=== PATIENT | female | born 1990 | race Two or more races ===

== ENCOUNTER → 2024-12-11 | Outpatient (CLI) | payer BC, SELFPAY ==
[2024-12-11 15:50] LABS: Collection Type, Urine Clean Catch
[2024-12-11 16:49] LABS: Bilirubin,Urine Negative (Negative); Blood,Urine Negative (Negative); Clarity,Urine Clear (Clear/Hazy); Color,Urine Lt-Yellow (Lt Yel-Yel); Glucose, Urine Negative (Negative); Ketones,Urine Negative (Negative); Leukocyte Esterase,Urine Negative (Negative); Nitrite,Urine Negative (Negative); PH,Urine 7.5 (5.0-7.0); Protein,Urine Negative (Neg - Trace); RBC,Urine 1 /hpf (0-3); Specific Gravity,Urine 1.011 (1.001-1.035); Squamous Epithelial Cell,Urine 8 /hpf (0-5); Urobilinogen,Urine Negative mg/dL (0.0-1.0); WBC,Urine 1 /hpf (0-5)
[2024-12-11 16:54] LABS: Amphetamine/Methamp Scrn,U Negative (Negative); Barbiturate Screen,Urine Negative (Negative); Benzodiazepines Screen,Urine Negative (Negative); Benzoylecgonine Screen, Ur Negative (Negative); Fentanyl Screen,Urine Negative (Negative); Opiate Screen,Urine Negative (Negative); THC Screen,Urine Negative (Negative)
[2024-12-12 08:18] LABS: BVAG Candida Negative (Negative); Bacterial Vaginosis Markers Negative (Negative); Candida glabrata Negative (Negative); Candida krusei PCR Negative (Negative); Trichomonas Negative (Negative)
== END | disposition home or self-care (01) ==
LOC: SLDO 15:37
PROVIDERS: Referring Provider Specialist; Visit Provider Specialist
DX: O98.311 Other infections with a predominantly sexual mode of transmission complicating pregnancy, first trimester (principal); A59.01 Trichomonal vulvovaginitis; O23.591 Infection of other part of genital tract in pregnancy, first trimester; B37.89 Other sites of candidiasis; N76.0 Acute vaginitis; O98.811 Other maternal infectious and parasitic diseases complicating pregnancy, first trimester; Z3A.00 Weeks of gestation of pregnancy not specified
CPT/HCPCS: 80307; 81001; 81514; 87086

== ENCOUNTER → 2024-12-11 | Outpatient (CLI) | payer BC, SELFPAY ==
[2024-12-11 10:27] LABS: Misc Send Out* See Sep Rpt
[2024-12-11 10:49] LABS: Quantiferon-TB* See Sep Rpt
[2024-12-11 10:59] LABS: Basophils % (Auto) 0 % (0-2.5); Eosinophils # (Auto) 0.1 Thou/mm3 (0.0-0.5); Eosinophils % (Auto) 1 % (0-10); Hematocrit 36.3 % (36.0-46.0); Hemoglobin 12.6 g/dL (12.0-16.0); Immature Granulocytes % (Auto) 0 % (0-0); Immature Granulocytes Auto 0.04 Thou/mm3 (0.00-0.00); Lymphocytes # (Auto) 1.7 Thou/mm3 (1.0-4.8); Lymphocytes % (Auto) 17 % (10-50); Mean Corpuscular HGB Conc 34.7 g/dl (31.0-37.0); Mean Corpuscular Hemoglobin 29.2 pg (25.0-35.0); Mean Corpuscular Volume 84 fL (80-100); Monocytes # (Auto) 0.4 Thou/mm3 (0.0-0.8); Monocytes % (Auto) 4 % (0-12); Neutrophils # (Auto) 7.4 Thou/mm3 (1.8-7.7); Neutrophils % (Auto) 77 % (37-80); Nucleated Red Blood Cell % 0 /100 WBC (0); Platelet Count 290 Thou/mm3 (140-440); RDW Standard Deviation 39.1 fL (36.4-46.3); Red Blood Count 4.32 Miln/mm3 (4.00-5.20); White Blood Count 9.6 Thou/mm3 (3.6-11.0)
[2024-12-11 11:34] LABS: Creatinine (Component) 0.4 mg/dL (0.6-1.3); Glucose 81 mg/dL (74-106); eGFR > 60 See Note
[2024-12-11 14:49] LABS: Glucose Estimated Average 91 mg/dL (80-131); Hemoglobin A1C 4.8 % Hgb (4.8-6.0)
[2024-12-11 15:45] LABS: Hepatitis B Surface Antigen Non Reactive (Non React); Rubella, IgG Antibody Reactive (Immune)
[2024-12-11 16:59] LABS: HIV (1&2) Antibody Rapid Non-Reactive
[2024-12-14 13:48] LABS: HCV RNA, PCR <15 NOT DETECTED IU/mL
[2024-12-15 07:18] LABS: HCV RNA, PCR Log IU <1.18 NOT DETECTED Log IU/mL; HIV Ag/Ab, 4th Gen NON-REACTIVE
== END | disposition home or self-care (01) ==
LOC: COPL 09:54
PROVIDERS: PCP Internal Medicine; Referring Provider Specialist; Visit Provider Specialist
DX: Z34.81 Encounter for supervision of other normal pregnancy, first trimester (principal)
CPT/HCPCS: 36415; 81220; 82565; 82947; 83036; 84702; 85025; 86480; 86703; 86762; 86850; 86900; 86901; 87340; 87389; 87522

== ENCOUNTER → 2025-03-06 | Outpatient (CLI) | payer BC, SELFPAY ==
[2025-03-06 14:36] LABS: Misc Send Out* See Sep Rpt
[2025-03-06 15:07] LABS: Glucose,1 Hour PP 50gm Dose 95 mg/dL (80-140)
== END | disposition home or self-care (01) ==
LOC: SLDO 14:15
PROVIDERS: Referring Provider Specialist; Visit Provider Specialist
DX: Z34.82 Encounter for supervision of other normal pregnancy, second trimester (principal); Z67.91 Unspecified blood type, Rh negative
CPT/HCPCS: 36415; 82950

== ENCOUNTER → 2025-03-24 | Outpatient (CLI) | payer BC, SELFPAY ==
[2025-03-24 15:01] LABS: Basophils # (Auto) 0.1 Thou/mm3 (0.0-0.2); Basophils % (Auto) 1 % (0-2.5); Eosinophils # (Auto) 0.1 Thou/mm3 (0.0-0.5); Eosinophils % (Auto) 1 % (0-10); Hematocrit 35.9 % (36.0-46.0); Hemoglobin 12.5 g/dL (12.0-16.0); Immature Granulocytes % (Auto) 1 % (0-0); Immature Granulocytes Auto 0.14 Thou/mm3 (0.00-0.00); Lymphocytes # (Auto) 1.8 Thou/mm3 (1.0-4.8); Lymphocytes % (Auto) 18 % (10-50); Mean Corpuscular HGB Conc 34.8 g/dl (31.0-37.0); Mean Corpuscular Hemoglobin 29.4 pg (25.0-35.0); Mean Corpuscular Volume 85 fL (80-100); Monocytes # (Auto) 0.5 Thou/mm3 (0.0-0.8); Monocytes % (Auto) 5 % (0-12); Neutrophils # (Auto) 7.3 Thou/mm3 (1.8-7.7); Neutrophils % (Auto) 74 % (37-80); Nucleated Red Blood Cell % 0 /100 WBC (0); Platelet Count 269 Thou/mm3 (140-440); RDW Standard Deviation 40.2 fL (36.4-46.3); Red Blood Count 4.25 Miln/mm3 (4.00-5.20); White Blood Count 9.9 Thou/mm3 (3.6-11.0)
[2025-03-24 16:26] LABS: Syphilis Nonreactive (Nonreactive)
== END | disposition home or self-care (01) ==
LOC: SLDO 14:24
PROVIDERS: Referring Provider Physician Assistant Medical; Visit Provider Physician Assistant Medical
DX: Z34.83 Encounter for supervision of other normal pregnancy, third trimester (principal)
CPT/HCPCS: 36415; 85025; 86780

== ENCOUNTER 2025-04-15 17:30 | Observation (INO) | payer BC, SELFPAY ==
[2025-04-15] VITALS (96 sets, daily range): BP systolic 102–136; BP diastolic 62–98; PULSE 77–169; RESP 16–99; TEMP 36.7–37.4; O2SAT 86–100; BMI 34.0
--- NOTE | 2025-04-15 17:47 | XR_ITS ---
Examination: Complete OB ultrasound greater than 14 weeks Date and time of exam: April 15, 2025 1831 hours INDICATIONS: Vaginal bleeding today Findings: Viable intrauterine single fetus with single amniotic sac presentation cephalic Cardiac motion 169 BPM Placenta anterior normal no obstruction grade tear Umbilical cord insertion 3 vessel seen Amniotic fluid index 14.5 cm spine maternal right Cervix 3.7 cm Ovaries obscured by bowel gas. Composite estimated gestational age based on BPD, head circumference, abdominal circumference, femur length is 34 weeks 0 days Estimated weight 2332 g. Survey of intracranial anatomy, spinal anatomy, abdominal anatomy, four-chamber heart performed with no abnormalities identified. Impression: Viable intrauterine gestation cephalic presentation Placenta anterior grade 2 no obstruction.
--- NOTE | 2025-04-15 17:51 | XR_ITS ---
Examination: AP chest single view TECHNIQUE: AP portable upright chest single view INDICATIONS: Sepsis protocol. FINDINGS: No significant cardiac enlargement No lobar pneumonia The film appears to be mislabeled right to left The osseous structures are intact IMPRESSION: No pneumonia identified
--- NOTE | 2025-04-15 17:51 | EKG_ITS ---
[facility] Test Date: 2025-04-15 Pat Name: RAVEN ROSAS Department: Room: 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
[2025-04-15] MEDS: RINGERS LACTATED 1000 ML 1,000 ML 999 ML IV (17:55)
--- NOTE | 2025-04-15 17:55 | PD.LDANTE ---
Documentation for date of: 04/15/25 OB Labor/Induct. HPI History of Present Illness : 2 Para: 1 Term pregnancies: 0 pregnancies: 0 Living children: 1 History of Abortions: Spontaneous and Elective: 0 History of Vaginal deliveries: 1 History of sections: No History of : No Date of last menstrual period: 08/22/24 DELFIN: 05/29/25 Gestational Age (weeks): 33 Gestational Age (days): 5 Gestational age based on last menstrual period: 33 History of present illness: 35 yo G2 P 1001 IUP 33w5d presents to [facility] complaining of sudden onset of vaginal bleeding after voiding. No vaginal bleeding seen by RN upon presentation to [facility] however tachycardia was noted in the 180's with variability and accelerations. Maternal heart rate was in the 160's. She has care at [facility]. She has chronic HTN but does not take any medications. Her labs were wnl. She denies any leaking or contractions. She reports normal movement. Denies fever, chest pain, shortness of breath or palpitations. Her most recent OB sonogram on 04/07/25 showed EFW 1863g, with growth at the 22nd%, SAMMY 14.9, cephalic, anterior placenta, no previa. OB Hx 07/2028 at 37w0d Male 5'14 PMHx: Gallstones, Rh negative, Chronic HTN. PSHx: Cholecystectomy Allergies: NKDA FHx: Denies Meds: PNV Review of Systems Review of Systems Narrative Review of Systems: Denies any headache, change in vision, RUQ pain or swelling in face or hands. Denies flank pain or back pain. Past Medical History Surgical History SURGICAL: Negative Section Meds Home Medications and Allergies Home Medications ?Medication ?Instructions ?Recorded ?Confirmed ?Type prenat.vits,miquel,oyl-xkdf-nbixj 1 tab PO QDAY 07/01/18 04/15/25 History ( Vitamin tablet) Allergies Allergy/AdvReac Type Severity Reaction Status Date / Time No Known Allergies Allergy Verified 04/15/25 17:38 OB Exam Physical Exam Vital signs: Pulse BP Pulse Ox 162 H 128/92 H 98 04/15/25 17:42 04/15/25 17:42 04/15/25 17:51 Routine HEENT Exam Comments: Oropharynx , sclera clear. Routine Respiratory Exam Comments: CTA B/L Routine Cardiovascular Exam Comments: Tachycardic but regular rhythm Routine Abdominal Exam Comments: gravid consistent with 33 weeks gestation, Nontender , soft Detailed Labor and Delivery Exam Comments: see RN notes Routine Extremities Exam Comments: Nontender or edema Routine Back/Spine/Pelvis Exam Comments: No CVAT Routine Skin Exam Comments: No rashes or lesions. Routine Neurological Exam Comments: No focal deficit Routine Psychiatric Exam Comments: A and O OB Results Labs 04/15/25 17:55 04/15/25 17:55 Impressions Impression: IUP 33w5d Third Trimester Vaginal Bleeding Maternal tachycardia 160's tachycardia 180's Chronic Hypertension Continuous monitoring IV LR at 999cc/hr x 1 liter than 125 cc/hr Complete OB sonogram rule out abruption Type and Cross 2 u pRBCs Sepsis work up.
[2025-04-15 18:21] LABS: Collection Type, Urine Clean Catch
[2025-04-15 18:29] LABS: Lactate (Lactic Acid) 3.0 mMol/L (0.4-2.0)
[2025-04-15 18:41] LABS: Bacteria,Urine 2+; Bilirubin,Urine Negative (Negative); Blood,Urine 3+ (Negative); Clarity,Urine Turbid (Clear/Hazy); Color,Urine Colorless (Lt Yel-Yel); Glucose, Urine Negative (Negative); Ketones,Urine Negative (Negative); Leukocyte Esterase,Urine Positive (Negative); Nitrite,Urine Negative (Negative); PH,Urine 6.5 (5.0-7.0); Protein,Urine Negative (Neg - Trace); RBC,Urine 38 /hpf (0-3); Specific Gravity,Urine 1.008 (1.001-1.035); Squamous Epithelial Cell,Urine 3 /hpf (0-5); Urobilinogen,Urine Negative mg/dL (0.0-1.0); WBC,Urine 11 /hpf (0-5)
[2025-04-15 18:46] LABS: Basophils # (Auto) 0.0 Thou/mm3 (0.0-0.2); Basophils % (Auto) 0 % (0-2.5); Eosinophils # (Auto) 0.1 Thou/mm3 (0.0-0.5); Eosinophils % (Auto) 1 % (0-10); Hematocrit 37.7 % (36.0-46.0); Hemoglobin 13.5 g/dL (12.0-16.0); Immature Granulocytes Auto 0.18 Thou/mm3 (0.00-0.00); Lymphocytes # (Auto) 3.0 Thou/mm3 (1.0-4.8); Lymphocytes % (Auto) 26 % (10-50); Mean Corpuscular HGB Conc 35.8 g/dl (31.0-37.0); Mean Corpuscular Hemoglobin 29.3 pg (25.0-35.0); Mean Corpuscular Volume 82 fL (80-100); Monocytes # (Auto) 0.8 Thou/mm3 (0.0-0.8); Monocytes % (Auto) 7 % (0-12); Neutrophils # (Auto) 7.5 Thou/mm3 (1.8-7.7); Neutrophils % (Auto) 65 % (37-80); Nucleated Red Blood Cell # 0.00 Thou/mm3 (0.00-0.00); Nucleated Red Blood Cell % 0 /100 WBC (0); Platelet Count 264 Thou/mm3 (140-440); RDW Standard Deviation 38.5 fL (36.4-46.3); Red Blood Count 4.61 Miln/mm3 (4.00-5.20); White Blood Count 11.7 Thou/mm3 (3.6-11.0)
[2025-04-15] MEDS: RINGERS LACTATED 1000 ML 1,000 ML 125 ML IV (18:47)
[2025-04-15 18:53] LABS: INR 0.9 (0.9-1.3); Partial Thromboplastin Time 27.1 Seconds (22.0-36.0); Prothrombin Time 10.3 Seconds (9.0-12.2)
[2025-04-15 18:58] LABS: Fibrinogen 664 mg/dL (175-375)
[2025-04-15 19:39] LABS: Alanine Aminotransferase 10 U/L (10-49); Albumin, Serum 3.8 gm/dL (3.5-5.0); Albumin/Globulin Ratio 1.2 (1.2-2.2); Alkaline Phosphatase 119 U/L (46-116); Anion Gap 14 (7-16); Aspartate Amino Transferase 19 U/L (0-34); BUN/Creatinine Ratio 8 Ratio (12-20); Bilirubin,Total 0.4 mg/dL (0.3-1.2); Blood Urea Nitrogen 5 mg/dL (9-23); Calcium 9.3 mg/dL (8.3-10.6); Calcium (Corrected) 9.5 mg/dL (8.5-10.1); Carbon Dioxide 18.8 mMol/L (20.0-31.0); Chloride 106 mMol/L (98-107); Creatinine (Component) 0.6 mg/dL (0.6-1.3); Estimated Creatinine Clearance 134.4 mL/min (>60); Globulin 3.2 gm/dL (2.3-3.5); Glucose 129 mg/dL (74-106); LDH (Lactate Dehydrogenase) 177 U/L (120-246); Osmolality,Calculated 276 (275-295); Potassium 3.6 mMol/L (3.4-5.1); Procalcitonin 0.05 ng/ml (0.0-0.49); Sodium 139 mMol/L (136-145); Total Protein 7.0 gm/dL (5.7-8.2); Uric Acid 3.7 mg/dL (3.1-7.8); eGFR > 60 See Note
[2025-04-15 19:42] LABS: Amphetamine/Methamp Scrn,U Negative (Negative); Barbiturate Screen,Urine Negative (Negative); Benzodiazepines Screen,Urine Negative (Negative); Benzoylecgonine Screen, Ur Negative (Negative); Creatinine,Random Urine 42 mg/dL (30-125); Fentanyl Screen,Urine Negative (Negative); Opiate Screen,Urine Negative (Negative); Protein Total, Random Urine 18 mg/dL (1-14); THC Screen,Urine Negative (Negative)
[2025-04-15 20:22] LABS: Syphilis Nonreactive (Nonreactive)
[2025-04-15] MEDS: cefTRIAXone/D5w 1gm IV premix 1 GM/50 ML BAG IV (20:49)
[2025-04-15 21:16] LABS: COVID-19 Antigen (In-House) Negative (Negative)
[2025-04-15 21:27] LABS: Reflex Lactate? Y
[2025-04-15 21:29] LABS: Influenza A Ag Negative; Influenza B Ag Negative
[2025-04-15 22:08] LABS: Lactic Acid, 3 HR 1.2 mMol/L (0.4-2.0)
[2025-04-16] VITALS (309 sets, daily range): BP systolic 97–128; BP diastolic 55–88; PULSE 78–125; RESP 14–18; TEMP 36.6–36.8; O2SAT 90–100
[2025-04-16] MEDS: RINGERS LACTATED 1000 ML 1,000 ML 999 ML IV (02:10)
[2025-04-16 06:40] LABS: Basophils # (Auto) 0.0 Thou/mm3 (0.0-0.2); Basophils % (Auto) 0 % (0-2.5); Eosinophils # (Auto) 0.1 Thou/mm3 (0.0-0.5); Eosinophils % (Auto) 1 % (0-10); Hematocrit 31.8 % (36.0-46.0); Hemoglobin 11.1 g/dL (12.0-16.0); Immature Granulocytes Auto 0.11 Thou/mm3 (0.00-0.00); Lymphocytes # (Auto) 2.4 Thou/mm3 (1.0-4.8); Lymphocytes % (Auto) 23 % (10-50); Mean Corpuscular HGB Conc 34.9 g/dl (31.0-37.0); Mean Corpuscular Hemoglobin 29.1 pg (25.0-35.0); Mean Corpuscular Volume 83 fL (80-100); Monocytes # (Auto) 0.7 Thou/mm3 (0.0-0.8); Monocytes % (Auto) 7 % (0-12); Neutrophils # (Auto) 7.2 Thou/mm3 (1.8-7.7); Neutrophils % (Auto) 68 % (37-80); Nucleated Red Blood Cell # 0.00 Thou/mm3 (0.00-0.00); Nucleated Red Blood Cell % 0 /100 WBC (0); Platelet Count 221 Thou/mm3 (140-440); RDW Standard Deviation 39.3 fL (36.4-46.3); Red Blood Count 3.82 Miln/mm3 (4.00-5.20); White Blood Count 10.5 Thou/mm3 (3.6-11.0)
--- NOTE | 2025-04-16 09:04 | ESPR_ITS ---
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 Will do ultrasound reassuring. No chest pain or shortness of breath or any other signs or symptoms except Exam Vital Signs Temp Pulse Resp BP Pulse Ox O2 Del Method 98.2 F 115 H 14 118/78 97 Room Air 04/16/25 07:45 04/16/25 08:48 04/16/25 07:45 04/16/25 08:48 04/16/25 09:03 04/16/25 03:05 Constitutional Constitutional: no acute distress Routine HEENT Exam Head: Present normocephalic and atraumatic Eye: Present EOMI and PERRL ENT: Present mucous membranes moist Routine Neck Exam Neck: Present supple and trachea midline Routine Respiratory Exam Respiratory: Present chest non-tender, lungs clear, normal breath sounds and no resp distress Routine Cardiovascular Exam Cardiovascular: Present RRR Routine Abdominal Exam Abdominal: Present soft and normoactive bowel sounds Routine Extremities Exam Extremities: Present full ROM Routine Skin Exam Skin: Present intact and dry Routine Neurological Exam Neurological: Present alert, oriented X3 and CN II-XII intact Routine Psychiatric Exam Psychiatric: Present normal affect and normal thought process Urinary Catheter Management Cath placed during this visit: no 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: 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 Data Labs 04/16/25 06:00 04/15/25 17:55 Labs: Laboratory Results - last 24 hr 04/15/25 04/15/25 04/15/25 17:30 17:55 17:55 WBC 11.7 H RBC 4.61 Hgb 13.5 Hct 37.7 MCV 82 MCH 29.3 MCHC 35.8 RDW Std Deviation 38.5 Plt Count 264 Neut % (Auto) 65 Lymph % (Auto) 26 [place] % (Auto) 7 Eos % (Auto) 1 Baso % (Auto) 0 Neut # (Auto) 7.5 Lymph # (Auto) 3.0 [place] # (Auto) 0.8 Eos # (Auto) 0.1 Baso # (Auto) 0.0 Immature Gran # (Auto) 0.18 H Absolute Nucleated RBC 0.00 Immature Gran % 2 H Nucleated RBC % 0 PT 10.3 INR 0.9 APTT 27.1 Fibrinogen 664 H* Sodium 139 Cancelled Potassium 3.6 Chloride Carbon Dioxide Anion Gap BUN Creatinine Estim Creat Clear Calc eGFR BUN/Creatinine Ratio Glucose Calculated Osmolality Lactic Acid Uric Acid Calcium Corrected Calcium Total Bilirubin AST ALT Alkaline Phosphatase Lactate Dehydrogenase Total Protein Albumin Globulin Albumin/Globulin Ratio Procalcitonin Ur Collection Type Clean Catch Urine Color Colorless A Urine Clarity Turbid A Urine pH 6.5 Ur Specific [place] 1.008 Urine Protein Negative Urine Glucose (UA) Negative Urine Ketones Negative Urine Blood 3+ A Urine Nitrite Negative Urine Bilirubin Negative Urine Urobilinogen (Auto) Negative Ur Leukocyte Esterase Positive Urine RBC 38 H Urine WBC 11 H Ur Squamous Epith Cells 3 Urine Bacteria 2+ A Ur Random Creatinine 42 U Random Total Protein 18 H Urine Opiates Screen Negative Urine Fentanyl Screen Negative Ur Barbiturates Screen Negative U Amphetamin/Meth Scrn Negative U Benzodiazepines Scrn Negative U Cocaine Metab Screen Negative U Marijuana (THC) Screen Negative Syphilis Serology Influenza A (Rapid) Influenza B (Rapid) SARS-CoV-2 Ag (Rapid) Blood Type Antibody Screen Antibody Identification Crossmatch Blood Bank Wristband ID 04/15/25 04/15/25 04/15/25 17:55 17:55 17:55 WBC RBC Hgb Hct MCV MCH MCHC RDW Std Deviation Plt Count Neut % (Auto) Lymph % (Auto) [place] % (Auto) Eos % (Auto) Baso % (Auto) Neut # (Auto) Lymph # (Auto) [place] # (Auto) Eos # (Auto) Baso # (Auto) Immature Gran # (Auto) Absolute Nucleated RBC Immature Gran % Nucleated RBC % PT INR APTT Fibrinogen Sodium Potassium Cancelled Chloride 106 Cancelled Carbon Dioxide 18.8 L Cancelled Anion Gap 14 BUN Creatinine Estim Creat Clear Calc eGFR BUN/Creatinine Ratio Glucose Calculated Osmolality Lactic Acid Uric Acid Calcium Corrected Calcium Total Bilirubin AST ALT Alkaline Phosphatase Lactate Dehydrogenase Total Protein Albumin Globulin Albumin/Globulin Ratio Procalcitonin Ur Collection Type Urine Color Urine Clarity Urine pH Ur Specific [place] Urine Protein Urine Glucose (UA) Urine Ketones Urine Blood Urine Nitrite Urine Bilirubin Urine Urobilinogen (Auto) Ur Leukocyte Esterase Urine RBC Urine WBC Ur Squamous Epith Cells Urine Bacteria Ur Random Creatinine U Random Total Protein Urine Opiates Screen Urine Fentanyl Screen Ur Barbiturates Screen U Amphetamin/Meth Scrn U Benzodiazepines Scrn U Cocaine Metab Screen U Marijuana (THC) Screen Syphilis Serology Influenza A (Rapid) Influenza B (Rapid) SARS-CoV-2 Ag (Rapid) Blood Type Antibody Screen Antibody Identification Crossmatch Blood Bank Wristband ID 04/15/25 04/15/25 04/15/25 17:55 17:55 17:55 WBC RBC Hgb Hct MCV MCH MCHC RDW Std Deviation Plt Count Neut % (Auto) Lymph % (Auto) [place] % (Auto) Eos % (Auto) Baso % (Auto) Neut # (Auto) Lymph # (Auto) [place] # (Auto) Eos # (Auto) Baso # (Auto) Immature Gran # (Auto) Absolute Nucleated RBC Immature Gran % Nucleated RBC % PT INR APTT Fibrinogen Sodium Potassium Chloride Carbon Dioxide Anion Gap Cancelled BUN 5 L Cancelled Creatinine 0.6 Cancelled Estim Creat Clear Calc 134.4 eGFR BUN/Creatinine Ratio Glucose Calculated Osmolality Lactic Acid Uric Acid Calcium Corrected Calcium Total Bilirubin AST ALT Alkaline Phosphatase Lactate Dehydrogenase Total Protein Albumin Globulin Albumin/Globulin Ratio Procalcitonin Ur Collection Type Urine Color Urine Clarity Urine pH Ur Specific [place] Urine Protein Urine Glucose (UA) Urine Ketones Urine Blood Urine Nitrite Urine Bilirubin Urine Urobilinogen (Auto) Ur Leukocyte Esterase Urine RBC Urine WBC Ur Squamous Epith Cells Urine Bacteria Ur Random Creatinine U Random Total Protein Urine Opiates Screen Urine Fentanyl Screen Ur Barbiturates Screen U Amphetamin/Meth Scrn U Benzodiazepines Scrn U Cocaine Metab Screen U Marijuana (THC) Screen Syphilis Serology Influenza A (Rapid) Influenza B (Rapid) SARS-CoV-2 Ag (Rapid) Blood Type Antibody Screen Antibody Identification Crossmatch Blood Bank Wristband ID 04/15/25 04/15/25 04/15/25 17:55 17:55 17:55 WBC RBC Hgb Hct MCV MCH MCHC RDW Std Deviation Plt Count Neut % (Auto) Lymph % (Auto) [place] % (Auto) Eos % (Auto) Baso % (Auto) Neut # (Auto) Lymph # (Auto) [place] # (Auto) Eos # (Auto) Baso # (Auto) Immature Gran # (Auto) Absolute Nucleated RBC Immature Gran % Nucleated RBC % PT INR APTT Fibrinogen Sodium Potassium Chloride Carbon Dioxide Anion Gap BUN Creatinine Estim Creat Clear Calc Cancelled eGFR > 60 Cancelled BUN/Creatinine Ratio 8 L Cancelled Glucose 129 H Calculated Osmolality Lactic Acid Uric Acid Calcium Corrected Calcium Total Bilirubin AST ALT Alkaline Phosphatase Lactate Dehydrogenase Total Protein Albumin Globulin Albumin/Globulin Ratio Procalcitonin Ur Collection Type Urine Color Urine Clarity Urine pH Ur Specific [place] Urine Protein Urine Glucose (UA) Urine Ketones Urine Blood Urine Nitrite Urine Bilirubin Urine Urobilinogen (Auto) Ur Leukocyte Esterase Urine RBC Urine WBC Ur Squamous Epith Cells Urine Bacteria Ur Random Creatinine U Random Total Protein Urine Opiates Screen Urine Fentanyl Screen Ur Barbiturates Screen U Amphetamin/Meth Scrn U Benzodiazepines Scrn U Cocaine Metab Screen U Marijuana (THC) Screen Syphilis Serology Influenza A (Rapid) Influenza B (Rapid) SARS-CoV-2 Ag (Rapid) Blood Type Antibody Screen Antibody Identification Crossmatch Blood Bank Wristband ID 04/15/25 04/15/25 04/15/25 17:55 17:55 17:55 WBC RBC Hgb Hct MCV MCH MCHC RDW Std Deviation Plt Count Neut % (Auto) Lymph % (Auto) [place] % (Auto) Eos % (Auto) Baso % (Auto) Neut # (Auto) Lymph # (Auto) [place] # (Auto) Eos # (Auto) Baso # (Auto) Immature Gran # (Auto) Absolute Nucleated RBC Immature Gran % Nucleated RBC % PT INR APTT Fibrinogen Sodium Potassium Chloride Carbon Dioxide Anion Gap BUN Creatinine Estim Creat Clear Calc eGFR BUN/Creatinine Ratio Glucose Cancelled Calculated Osmolality 276 Cancelled Lactic Acid Uric Acid 3.7 Calcium 9.3 Cancelled Corrected Calcium 9.5 Total Bilirubin AST ALT Alkaline Phosphatase Lactate Dehydrogenase Total Protein Albumin Globulin Albumin/Globulin Ratio Procalcitonin Ur Collection Type Urine Color Urine Clarity Urine pH Ur Specific [place] Urine Protein Urine Glucose (UA) Urine Ketones Urine Blood Urine Nitrite Urine Bilirubin Urine Urobilinogen (Auto) Ur Leukocyte Esterase Urine RBC Urine WBC Ur Squamous Epith Cells Urine Bacteria Ur Random Creatinine U Random Total Protein Urine Opiates Screen Urine Fentanyl Screen Ur Barbiturates Screen U Amphetamin/Meth Scrn U Benzodiazepines Scrn U Cocaine Metab Screen U Marijuana (THC) Screen Syphilis Serology Influenza A (Rapid) Influenza B (Rapid) SARS-CoV-2 Ag (Rapid) Blood Type Antibody Screen Antibody Identification Crossmatch Blood Bank Wristband ID 04/15/25 04/15/25 04/15/25 17:55 17:55 17:55 WBC RBC Hgb Hct MCV MCH MCHC RDW Std Deviation Plt Count Neut % (Auto) Lymph % (Auto) [place] % (Auto) Eos % (Auto) Baso % (Auto) Neut # (Auto) Lymph # (Auto) [place] # (Auto) Eos # (Auto) Baso # (Auto) Immature Gran # (Auto) Absolute Nucleated RBC Immature Gran % Nucleated RBC % PT INR APTT Fibrinogen Sodium Potassium Chloride Carbon Dioxide Anion Gap BUN Creatinine Estim Creat Clear Calc eGFR BUN/Creatinine Ratio Glucose Calculated Osmolality Lactic Acid Uric Acid Calcium Corrected Calcium Cancelled Total Bilirubin 0.4 Cancelled AST 19 Cancelled ALT 10 Alkaline Phosphatase Lactate Dehydrogenase Total Protein Albumin Globulin Albumin/Globulin Ratio Procalcitonin Ur Collection Type Urine Color Urine Clarity Urine pH Ur Specific [place] Urine Protein Urine Glucose (UA) Urine Ketones Urine Blood Urine Nitrite Urine Bilirubin Urine Urobilinogen (Auto) Ur Leukocyte Esterase Urine RBC Urine WBC Ur Squamous Epith Cells Urine Bacteria Ur Random Creatinine U Random Total Protein Urine Opiates Screen Urine Fentanyl Screen Ur Barbiturates Screen U Amphetamin/Meth Scrn U Benzodiazepines Scrn U Cocaine Metab Screen U Marijuana (THC) Screen Syphilis Serology Influenza A (Rapid) Influenza B (Rapid) SARS-CoV-2 Ag (Rapid) Blood Type Antibody Screen Antibody Identification Crossmatch Blood Bank Wristband ID 04/15/25 04/15/25 04/15/25 17:55 17:55 17:55 WBC RBC Hgb Hct MCV MCH MCHC RDW Std Deviation Plt Count Neut % (Auto) Lymph % (Auto) [place] % (Auto) Eos % (Auto) Baso % (Auto) Neut # (Auto) Lymph # (Auto) [place] # (Auto) Eos # (Auto) Baso # (Auto) Immature Gran # (Auto) Absolute Nucleated RBC Immature Gran % Nucleated RBC % PT INR APTT Fibrinogen Sodium Potassium Chloride Carbon Dioxide Anion Gap BUN Creatinine Estim Creat Clear Calc eGFR BUN/Creatinine Ratio Glucose Calculated Osmolality Lactic Acid Uric Acid Calcium Corrected Calcium Total Bilirubin AST ALT Cancelled Alkaline Phosphatase 119 H Cancelled Lactate Dehydrogenase 177 Total Protein 7.0 Cancelled Albumin 3.8 Globulin Albumin/Globulin Ratio Procalcitonin Ur Collection Type Urine Color Urine Clarity Urine pH Ur Specific [place] Urine Protein Urine Glucose (UA) Urine Ketones Urine Blood Urine Nitrite Urine Bilirubin Urine Urobilinogen (Auto) Ur Leukocyte Esterase Urine RBC Urine WBC Ur Squamous Epith Cells Urine Bacteria Ur Random Creatinine U Random Total Protein Urine Opiates Screen Urine Fentanyl Screen Ur Barbiturates Screen U Amphetamin/Meth Scrn U Benzodiazepines Scrn U Cocaine Metab Screen U Marijuana (THC) Screen Syphilis Serology Influenza A (Rapid) Influenza B (Rapid) SARS-CoV-2 Ag (Rapid) Blood Type Antibody Screen Antibody Identification Crossmatch Blood Bank Wristband ID 04/15/25 04/15/25 04/15/25 17:55 17:55 17:55 WBC RBC Hgb Hct MCV MCH MCHC RDW Std Deviation Plt Count Neut % (Auto) Lymph % (Auto) [place] % (Auto) Eos % (Auto) Baso % (Auto) Neut # (Auto) Lymph # (Auto) [place] # (Auto) Eos # (Auto) Baso # (Auto) Immature Gran # (Auto) Absolute Nucleated RBC Immature Gran % Nucleated RBC % PT INR APTT Fibrinogen Sodium Potassium Chloride Carbon Dioxide Anion Gap BUN Creatinine Estim Creat Clear Calc eGFR BUN/Creatinine Ratio Glucose Calculated Osmolality Lactic Acid Uric Acid Calcium Corrected Calcium Total Bilirubin AST ALT Alkaline Phosphatase Lactate Dehydrogenase Total Protein Albumin Cancelled Globulin 3.2 Cancelled Albumin/Globulin Ratio 1.2 Cancelled Procalcitonin 0.05 Ur Collection Type Urine Color Urine Clarity Urine pH Ur Specific [place] Urine Protein Urine Glucose (UA) Urine Ketones Urine Blood Urine Nitrite Urine Bilirubin Urine Urobilinogen (Auto) Ur Leukocyte Esterase Urine RBC Urine WBC Ur Squamous Epith Cells Urine Bacteria Ur Random Creatinine U Random Total Protein Urine Opiates Screen Urine Fentanyl Screen Ur Barbiturates Screen U Amphetamin/Meth Scrn U Benzodiazepines Scrn U Cocaine Metab Screen U Marijuana (THC) Screen Syphilis Serology Influenza A (Rapid) Influenza B (Rapid) SARS-CoV-2 Ag (Rapid) Blood Type Antibody Screen Antibody Identification Crossmatch Blood Bank Wristband ID 04/15/25 04/15/25 04/15/25 17:55 18:12 18:30 WBC RBC Hgb Hct MCV MCH MCHC RDW Std Deviation Plt Count Neut % (Auto) Lymph % (Auto) [place] % (Auto) Eos % (Auto) Baso % (Auto) Neut # (Auto) Lymph # (Auto) [place] # (Auto) Eos # (Auto) Baso # (Auto) Immature Gran # (Auto) Absolute Nucleated RBC Immature Gran % Nucleated RBC % PT INR APTT Fibrinogen Sodium Potassium Chloride Carbon Dioxide Anion Gap BUN Creatinine Estim Creat Clear Calc eGFR BUN/Creatinine Ratio Glucose Calculated Osmolality Lactic Acid 3.0 H Uric Acid Calcium Corrected Calcium Total Bilirubin AST ALT Alkaline Phosphatase Lactate Dehydrogenase Total Protein Albumin Globulin Albumin/Globulin Ratio Procalcitonin Cancelled Ur Collection Type Urine Color Urine Clarity Urine pH Ur Specific [place] Urine Protein Urine Glucose (UA) Urine Ketones Urine Blood Urine Nitrite Urine Bilirubin Urine Urobilinogen (Auto) Ur Leukocyte Esterase Urine RBC Urine WBC Ur Squamous Epith Cells Urine Bacteria Ur Random Creatinine U Random Total Protein Urine Opiates Screen Urine Fentanyl Screen Ur Barbiturates Screen U Amphetamin/Meth Scrn U Benzodiazepines Scrn U Cocaine Metab Screen U Marijuana (THC) Screen Syphilis Serology Nonreactive Influenza A (Rapid) Negative Influenza B (Rapid) Negative SARS-CoV-2 Ag (Rapid) Negative Blood Type A Negative Antibody Screen POSITIVE Antibody Identification Anti-D from [employer] Crossmatch See Detail Blood Bank Wristband ID Yes 04/15/25 04/16/25 21:56 06:00 WBC 10.5 RBC 3.82 L Hgb 11.1 L D Hct 31.8 L MCV 83 MCH 29.1 MCHC 34.9 RDW Std Deviation 39.3 Plt Count 221 D Neut % (Auto) 68 Lymph % (Auto) 23 [place] % (Auto) 7 Eos % (Auto) 1 Baso % (Auto) 0 Neut # (Auto) 7.2 Lymph # (Auto) 2.4 [place] # (Auto) 0.7 Eos # (Auto) 0.1 Baso # (Auto) 0.0 Immature Gran # (Auto) 0.11 H Absolute Nucleated RBC 0.00 Immature Gran % 1 H Nucleated RBC % 0 PT INR APTT Fibrinogen Sodium Potassium Chloride Carbon Dioxide Anion Gap BUN Creatinine Estim Creat Clear Calc eGFR BUN/Creatinine Ratio Glucose Calculated Osmolality Lactic Acid 1.2 Uric Acid Calcium Corrected Calcium Total Bilirubin AST ALT Alkaline Phosphatase Lactate Dehydrogenase Total Protein Albumin Globulin Albumin/Globulin Ratio Procalcitonin Ur Collection Type Urine Color Urine Clarity Urine pH Ur Specific [place] Urine Protein Urine Glucose (UA) Urine Ketones Urine Blood Urine Nitrite Urine Bilirubin Urine Urobilinogen (Auto) Ur Leukocyte Esterase Urine RBC Urine WBC Ur Squamous Epith Cells Urine Bacteria Ur Random Creatinine U Random Total Protein Urine Opiates Screen Urine Fentanyl Screen Ur Barbiturates Screen U Amphetamin/Meth Scrn U Benzodiazepines Scrn U Cocaine Metab Screen U Marijuana (THC) Screen Syphilis Serology Influenza A (Rapid) Influenza B (Rapid) SARS-CoV-2 Ag (Rapid) Blood Type Antibody Screen Antibody Identification Crossmatch Blood Bank 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 Assessment and plan (1) Acute hemorrhagic cystitis: Status: Acute (2) Vaginal bleeding during , antepartum: Status: Acute Assessment and plan: Hospital day #2 admission for acute hemorrhagic cystitis in third trimester Continue current plan, plan to complete IV antibiotics for at least 24 hours and then possible discharge on oral antibiotics depending on clinical status (3) Intrauterine : Status: Acute Time Spent With Patient Time: Total time spent is greater than 50% in coordination of care (as documented) at patient's floor/unit and/or counseling patient: Time with patient: less than 15 minutes
[2025-04-16] MEDS: RINGERS LACTATED 1000 ML 1,000 ML 125 ML IV (20:00)
[2025-04-16] MEDS: cefTRIAXone 1,000 MG in SODIUM CHLORIDE 0.9% (Popper) 50 ML 100 MG IV (20:16)
[2025-04-23 06:26] LABS: Prolactin* 202.3 ng/mL
== END 2025-04-16 20:58 | disposition home or self-care (01) ==
PROVIDERS: Admitting Provider Specialist; Visit Provider Obstetrics & Gynecology
DX: O23.13 Infections of bladder in pregnancy, third trimester (principal); N30.00 Acute cystitis without hematuria; Z3A.34 34 weeks gestation of pregnancy; O46.93 Antepartum hemorrhage, unspecified, third trimester; O36.8330 Maternal care for abnormalities of the fetal heart rate or rhythm, third trimester, not applicable or unspecified; O10.913 Unspecified pre-existing hypertension complicating pregnancy, third trimester; O99.891 Other specified diseases and conditions complicating pregnancy; R00.0 Tachycardia, unspecified
CPT/HCPCS: 36415; 59025; 59899; 71045; 76805; 80053; 80307; 81001; 82570; 83605; 83615; 84145; 84146; 84156; 84550; 85025; 85384; 85610; 85730; 86780; 86850; 86870; 86900; 86901; 86921; 86922; 87040; 87086; 87502; 87811; 93005; 96360; G0378; J0696; J7050; J7120

== ENCOUNTER → 2025-04-20 | Outpatient (CLI) | payer BC, SELFPAY ==
--- NOTE | 2025-04-20 16:29 | XR_ITS ---
Examination: Retroperitoneal ultrasound, complete Technique: Multiple high resolution grayscale images of the retroperitoneum obtained, including kidneys and bladder. Exam date: April 20, 2025, 1633 hours: Findings: Right kidney 12.1 cm renal cortex 2.2 cm Moderate hydronephrosis Left kidney 11.0 cm renal cortex 2.6 cm Mild hydronephrosis No renal calculi Contracted urinary bladder IMPRESSION: Moderate right and mild left hydronephrosis
[2025-04-20 17:38] LABS: Basophils # (Auto) 0.0 Thou/mm3 (0.0-0.2); Basophils % (Auto) 0 % (0-2.5); Eosinophils # (Auto) 0.1 Thou/mm3 (0.0-0.5); Eosinophils % (Auto) 0 % (0-10); Hematocrit 36.9 % (36.0-46.0); Hemoglobin 12.6 g/dL (12.0-16.0); Immature Granulocytes Auto 0.11 Thou/mm3 (0.00-0.00); Lymphocytes # (Auto) 1.9 Thou/mm3 (1.0-4.8); Lymphocytes % (Auto) 15 % (10-50); Mean Corpuscular HGB Conc 34.1 g/dl (31.0-37.0); Mean Corpuscular Hemoglobin 29.4 pg (25.0-35.0); Mean Corpuscular Volume 86 fL (80-100); Monocytes # (Auto) 0.8 Thou/mm3 (0.0-0.8); Monocytes % (Auto) 6 % (0-12); Neutrophils # (Auto) 10.3 Thou/mm3 (1.8-7.7); Neutrophils % (Auto) 78 % (37-80); Nucleated Red Blood Cell # 0.00 Thou/mm3 (0.00-0.00); Nucleated Red Blood Cell % 0 /100 WBC (0); Platelet Count 240 Thou/mm3 (140-440); RDW Standard Deviation 39.8 fL (36.4-46.3); Red Blood Count 4.29 Miln/mm3 (4.00-5.20); White Blood Count 13.3 Thou/mm3 (3.6-11.0)
[2025-04-20 17:52] LABS: Fibrinogen 567 mg/dL (175-375); INR 1.0 (0.9-1.3); Partial Thromboplastin Time 27.3 Seconds (22.0-36.0); Prothrombin Time 10.7 Seconds (9.0-12.2)
[2025-04-20 17:56] LABS: Protein Total, Random Urine 10 mg/dL (1-14)
[2025-04-20 18:12] LABS: Alanine Aminotransferase 8 U/L (10-49); Albumin, Serum 3.6 gm/dL (3.5-5.0); Albumin/Globulin Ratio 1.2 (1.2-2.2); Alkaline Phosphatase 116 U/L (46-116); Anion Gap 12 (7-16); Aspartate Amino Transferase 17 U/L (0-34); BUN/Creatinine Ratio 10 Ratio (12-20); Bilirubin,Total 0.4 mg/dL (0.3-1.2); Blood Urea Nitrogen 5 mg/dL (9-23); Calcium 9.4 mg/dL (8.3-10.6); Calcium (Corrected) 9.7 mg/dL (8.5-10.1); Carbon Dioxide 20.2 mMol/L (20.0-31.0); Chloride 106 mMol/L (98-107); Creatinine (Component) 0.5 mg/dL (0.6-1.3); Globulin 3.0 gm/dL (2.3-3.5); Glucose 93 mg/dL (74-106); Osmolality,Calculated 272 (275-295); Potassium 3.8 mMol/L (3.4-5.1); Sodium 138 mMol/L (136-145); Total Protein 6.6 gm/dL (5.7-8.2); Uric Acid 3.7 mg/dL (3.1-7.8); eGFR > 60 See Note
== END | disposition home or self-care (01) ==
LOC: CDIM 16:45 → COPL 16:47
PROVIDERS: PCP Internal Medicine; Referring Provider Physician Assistant Medical; Visit Provider Physician Assistant Medical
DX: R03.0 Elevated blood-pressure reading, without diagnosis of hypertension (principal); N13.30 Unspecified hydronephrosis
CPT/HCPCS: 36415; 76770; 80053; 84156; 84550; 85025; 85384; 85610; 85730

== ENCOUNTER → 2025-04-21 | Outpatient (CLI) | payer BC, SELFPAY | END | disposition home or self-care (01) | LOC: SLDO 14:36 | PROVIDERS: Referring Provider Physician Assistant Medical; Visit Provider Physician Assistant Medical | DX: Z34.83 Encounter for supervision of other normal pregnancy, third trimester (principal) | CPT/HCPCS: 87077; 87086; 87186 ==

== ENCOUNTER → 2025-04-22 | Outpatient (CLI) | payer BC, SELFPAY ==
[2025-04-22 13:19] LABS: Creatinine,Urine 65 mg/dL (30-125); Protein Total, Urine 17 mg/dL (1-14)
[2025-04-22 14:11] LABS: Creatinine, 24 Hour Urine 1.0 gm/24hr (0.6-1.8); Creatinine, Urine Volume 1525 mL/24hr (600-1800); Protein Total, 24 hr Urine 259 mg/24hr (<149); Protein Total, Urine Volume 1525 mL/24hr (600-1800)
== END | disposition home or self-care (01) ==
LOC: SLDO 12:09
PROVIDERS: Referring Provider Physician Assistant Medical; Visit Provider Physician Assistant Medical
DX: R03.0 Elevated blood-pressure reading, without diagnosis of hypertension (principal)
CPT/HCPCS: 82570; 84156

== ENCOUNTER 2025-04-24 18:54 | Inpatient (IN) | payer BC, SELFPAY ==
[2025-04-24] VITALS (51 sets, daily range): BP systolic 120–159; BP diastolic 77–93; PULSE 79–120; RESP 16–100; TEMP 36.8–36.9; O2SAT 90–100; BMI 33.8
[2025-04-24] MEDS: OXYTOCIN in NS 20 units 20 UNIT/1,000 ML BAG 125 UNIT IV (19:49)
[2025-04-24] MEDS: fentaNYL CIT INJ 50 mCg/ML AMP 2ML 100 MCG IVP (19:56)
--- NOTE | 2025-04-24 20:00 | PD.LDHP ---
Documentation for date of: 04/24/25 OB Labor/Induct. HPI History of Present Illness : 2 Para: 1 Term pregnancies: 0 pregnancies: 0 Living children: 1 History of Abortions: Spontaneous and Elective: 0 History of Vaginal deliveries: 1 History of sections: No History of : No DELFIN: 05/29/25 Gestational Age (weeks): 35 Gestational Age (days): 0 History of present illness: 35-year-old 2 para 1 at 35 weeks and 0 days with estimated due date of 05/29/2025 presented to labor and delivery triage with contractions that started at 3 PM this afternoon. Shortly after patient had spontaneous rupture of membranes followed by precipitous delivery within 20 minutes. Patient does have a history of a prior 37-week delivery. She denies any other associated complaints. Patient was recently admitted to antepartum service because of pyelonephritis/hemorrhagic cystitis She receives care with Dr Dial at [facility] Review of Systems Review of Systems Systems Reviewed: All systems reviewed, normal except as documented Past Medical History Surgical History SURGICAL: Negative Section Meds Home Medications and Allergies Home Medications ?Medication ?Instructions ?Recorded ?Confirmed ?Type prenat.vits,miquel,[id number] 1 tab PO QDAY 07/01/18 04/15/25 History ( Vitamin tablet) Allergies Allergy/AdvReac Type Severity Reaction Status Date / Time No Known Allergies Allergy Verified 04/15/25 17:38 OB Exam Physical Exam Vital signs: Temp Pulse Resp BP Pulse Ox 98.2 F 91 17 127/88 H 99 04/24/25 19:11 04/24/25 19:58 04/24/25 19:11 04/24/25 19:58 04/24/25 19:57 Constitutional Constitutional: no acute distress Routine HEENT Exam Head: Present normocephalic and atraumatic Eye: Present EOMI and PERRL ENT: Present mucous membranes moist Routine Neck Exam Neck: Present supple and trachea midline Routine Cardiovascular Exam Cardiovascular: Present RRR Routine Abdominal Exam Abdominal: Present soft and normoactive bowel sounds Detailed Labor and Delivery Exam Dilation (cm): 10 Effacement (%): 100 Cervix position: mid Baseline heart rate: 140 monitor accelerations: 15x15 monitor decelerations: Variable custodial variability: Average (6-10) Routine Extremities Exam Extremities: Present full ROM Routine Skin Exam Skin: Present intact, dry and warm Routine Neurological Exam Neurological: Present alert, oriented X3 and CN II-XII intact Routine Psychiatric Exam Psychiatric: Present normal affect and normal thought process OB Assessment & Plan Assessment and Plan (1) Placental abruption: Status: Acute (2) Precipitous delivery: Status: Acute Assessment and plan: 35-year-old 2 para 1 status post precipitous delivery at 35 weeks and 0 days Continue routine care Patient given uterotonic's including Methergine and Pitocin with adequate tone and control of bleeding
--- NOTE | 2025-04-24 20:04 | PD.LDDELS ---
Data (Katz) Data Hx Section: No : 2 Term: 0 : 0 Livin Abortions: Spontaneous & Theraputic: 0 Delivery Data (Katz) Delivery Data Delivered by: Quique Reynoso
[2025-04-24] MEDS: METHYLERGONOVINE INJ 0.2 MG/ML VIAL IM (20:10)
[2025-04-24] MEDS: LIDOCAINE HCL 1% 20 ML VIAL INFL (20:10)
[2025-04-24] MEDS: TRANEXAMIC ACID 1,000 MG IVPB 1,000 MG/100 ML BAG 200 MG IV (20:17)
[2025-04-24 20:55] LABS: Basophils # (Auto) 0.1 Thou/mm3 (0.0-0.2); Basophils % (Auto) 0 % (0-2.5); Eosinophils # (Auto) 0.0 Thou/mm3 (0.0-0.5); Eosinophils % (Auto) 0 % (0-10); Hematocrit 35.3 % (36.0-46.0); Hemoglobin 12.6 g/dL (12.0-16.0); Immature Granulocytes Auto 0.19 Thou/mm3 (0.00-0.00); Lymphocytes # (Auto) 1.4 Thou/mm3 (1.0-4.8); Lymphocytes % (Auto) 7 % (10-50); Mean Corpuscular HGB Conc 35.7 g/dl (31.0-37.0); Mean Corpuscular Hemoglobin 30.0 pg (25.0-35.0); Mean Corpuscular Volume 84 fL (80-100); Monocytes # (Auto) 0.9 Thou/mm3 (0.0-0.8); Monocytes % (Auto) 5 % (0-12); Neutrophils # (Auto) 17.4 Thou/mm3 (1.8-7.7); Neutrophils % (Auto) 87 % (37-80); Nucleated Red Blood Cell # 0.00 Thou/mm3 (0.00-0.00); Nucleated Red Blood Cell % 0 /100 WBC (0); Platelet Count 228 Thou/mm3 (140-440); RDW Standard Deviation 39.8 fL (36.4-46.3); Red Blood Count 4.20 Miln/mm3 (4.00-5.20); White Blood Count 20.0 Thou/mm3 (3.6-11.0)
[2025-04-24 21:31] LABS: Syphilis Nonreactive (Nonreactive)
[2025-04-24] MEDS: NIFEdipine XL 30 MG TABCR PO (22:46)
[2025-04-25 03:34] LABS: Amphetamine/Metham Scrn,Ur OB Negative (Negative); Benzoylecgonine Screen, Ur OB Negative (Negative); Opiate Screen,Urine OB Negative (Negative); THC Screen,Urine OB Negative (Negative)
[2025-04-25 04:46] VITALS: BP 114/75; PULSE 73; RESP 18; TEMP 36.8; O2SAT 97
[2025-04-25 05:26] LABS: Basophils # (Auto) 0.1 Thou/mm3 (0.0-0.2); Basophils % (Auto) 0 % (0-2.5); Eosinophils # (Auto) 0.0 Thou/mm3 (0.0-0.5); Eosinophils % (Auto) 0 % (0-10); Hematocrit 34.7 % (36.0-46.0); Hemoglobin 11.7 g/dL (12.0-16.0); Immature Granulocytes Auto 0.19 Thou/mm3 (0.00-0.00); Lymphocytes # (Auto) 2.5 Thou/mm3 (1.0-4.8); Lymphocytes % (Auto) 14 % (10-50); Mean Corpuscular HGB Conc 33.7 g/dl (31.0-37.0); Mean Corpuscular Hemoglobin 29.3 pg (25.0-35.0); Mean Corpuscular Volume 87 fL (80-100); Monocytes # (Auto) 1.0 Thou/mm3 (0.0-0.8); Monocytes % (Auto) 6 % (0-12); Neutrophils # (Auto) 13.4 Thou/mm3 (1.8-7.7); Neutrophils % (Auto) 78 % (37-80); Nucleated Red Blood Cell # 0.00 Thou/mm3 (0.00-0.00); Nucleated Red Blood Cell % 0 /100 WBC (0); Platelet Count 233 Thou/mm3 (140-440); RDW Standard Deviation 41.0 fL (36.4-46.3); Red Blood Count 4.00 Miln/mm3 (4.00-5.20); White Blood Count 17.2 Thou/mm3 (3.6-11.0)
[2025-04-25 08:30] VITALS: BP 109/72; PULSE 89; RESP 16; TEMP 36.6; O2SAT 98
[2025-04-25] MEDS: DOCUSATE SOD 100 MG CAPSULE PO (09:57)
[2025-04-25 12:15] VITALS: BP 114/79; PULSE 86; RESP 14; TEMP 36.9
[2025-04-25 14:59] VITALS: BP 124/86; PULSE 90; RESP 16; TEMP 36.9; O2SAT 98
[2025-04-25 15:09] VITALS: BP 120/83; PULSE 78; RESP 16; TEMP 36.9; O2SAT 98
--- NOTE | 2025-04-25 15:42 | PC.CC ---
Raiza Medina is a 35-year-old female admitted for labor and delivery care. [employer] made contact with Pt at bedside to complete ob assessment and discuss discharge disposition. Role and reason for the contact was explained to Pt. Demographic information was verified. Pt is independent with all ADLs, no source of DME. PCP is [facility]. At time of discharge patient will return home, family will provide transportation. Mother plans on combo bottle feeing, has car seat, and all supplies for baby. Mother denies any use of substance, no DV, no CPS. Mother reports support system provided by extended family. Discharge Plan: Home PCP: [facility]
[2025-04-25 20:00] VITALS: BP 117/85; PULSE 99; RESP 18; TEMP 36.6; O2SAT 97
--- NOTE | 2025-04-25 21:23 | PD.LDPPPRG ---
Subjective Subjective Interval history: The patient is a 35-year-old -0-0-2 status post precipitous vaginal delivery at 35 weeks yesterday, 02/22/[address] Harvey at about 1948. The baby is in the NICU due to prematurity. Today she is resting comfortably comfortably in bed with family members at bedside. She denies any heavy bleeding. Her pain is controlled with oral pain medications. Predelivery hemoglobin 12.6 postdelivery hemoglobin 11.7. Her vital signs are stable. Exam Vital Signs Temp Pulse Resp BP Pulse Ox O2 Del Method 97.8 F 99 18 117/85 H 97 Room Air 04/25/25 20:00 04/25/25 20:00 04/25/25 20:00 04/25/25 20:00 04/25/25 20:00 04/25/25 20:00 Narrative Exam Fundus firm nontender extremities show no significant edema or erythema Objective Labs 04/25/25 04:25 Labs: Laboratory Results - last 24 hr 04/24/25 04/24/25 04/25/25 20:29 23:00 02:55 WBC RBC Hgb Hct MCV MCH MCHC RDW Std Deviation Plt Count Neut % (Auto) Lymph % (Auto) [place] % (Auto) Eos % (Auto) Baso % (Auto) Neut # (Auto) Lymph # (Auto) [place] # (Auto) Eos # (Auto) Baso # (Auto) Immature Gran # (Auto) Absolute Nucleated RBC Immature Gran % Nucleated RBC % Urine Opiates Screen Negative U Amphetamin/Meth Scrn Negative U Cocaine Metab Screen Negative U Marijuana (THC) Screen Negative Syphilis Serology Nonreactive Blood Type A Negative Rho(D) IG Studies Ready Antibody Screen POSITIVE Antibody Identification Anti-D from [facility] Maternal Bleed Negative Blood Bank Wristband ID Yes 04/25/25 04:25 WBC 17.2 H RBC 4.00 Hgb 11.7 L Hct 34.7 L MCV 87 MCH 29.3 MCHC 33.7 RDW Std Deviation 41.0 Plt Count 233 Neut % (Auto) 78 Lymph % (Auto) 14 [place] % (Auto) 6 Eos % (Auto) 0 Baso % (Auto) 0 Neut # (Auto) 13.4 H Lymph # (Auto) 2.5 [place] # (Auto) 1.0 H Eos # (Auto) 0.0 Baso # (Auto) 0.1 Immature Gran # (Auto) 0.19 H Absolute Nucleated RBC 0.00 Immature Gran % 1 H Nucleated RBC % 0 Urine Opiates Screen U Amphetamin/Meth Scrn U Cocaine Metab Screen U Marijuana (THC) Screen Syphilis Serology Blood Type Rho(D) IG Studies Antibody Screen Antibody Identification Maternal Bleed Blood Bank Wristband ID Assessment & Plan Problem List (1) care following vaginal delivery: Status: Acute Assessment and plan: Patient is doing very well. She will stay overnight. Probable discharge in the morning. Time Spent With Patient Time: Total time spent is greater than 50% in coordination of care (as documented) at patient's floor/unit and/or counseling patient: Time with patient: less than 15 minutes
[2025-04-26 03:48] VITALS: BP 123/82; PULSE 75; RESP 15; TEMP 36.7; O2SAT 98
[2025-04-26 07:23] LABS: Basophils # (Auto) 0.1 Thou/mm3 (0.0-0.2); Basophils % (Auto) 1 % (0-2.5); Eosinophils # (Auto) 0.2 Thou/mm3 (0.0-0.5); Eosinophils % (Auto) 1 % (0-10); Hematocrit 34.8 % (36.0-46.0); Hemoglobin 12.1 g/dL (12.0-16.0); Immature Granulocytes Auto 0.18 Thou/mm3 (0.00-0.00); Lymphocytes # (Auto) 3.4 Thou/mm3 (1.0-4.8); Lymphocytes % (Auto) 23 % (10-50); Mean Corpuscular HGB Conc 34.8 g/dl (31.0-37.0); Mean Corpuscular Hemoglobin 30.1 pg (25.0-35.0); Mean Corpuscular Volume 87 fL (80-100); Monocytes # (Auto) 0.9 Thou/mm3 (0.0-0.8); Monocytes % (Auto) 6 % (0-12); Neutrophils # (Auto) 10.2 Thou/mm3 (1.8-7.7); Neutrophils % (Auto) 69 % (37-80); Nucleated Red Blood Cell # 0.00 Thou/mm3 (0.00-0.00); Nucleated Red Blood Cell % 0 /100 WBC (0); Platelet Count 261 Thou/mm3 (140-440); RDW Standard Deviation 42.4 fL (36.4-46.3); Red Blood Count 4.02 Miln/mm3 (4.00-5.20); White Blood Count 14.8 Thou/mm3 (3.6-11.0)
--- NOTE | 2025-04-26 07:49 | ESPR_ITS ---
Subjective Subjective Interval history: Delivery type: Patient doing well this morning. No acute complaints. Ambulating, tolerating p.o. and voiding without difficulty. HTN/Pre-Eclampsia screen: No chest pain, shortness of breath, headache, visual changes, epigastric or right upper quadrant pain. Breast-feeding, lochia diminishing. Bowel: Flatus+/ BM+ Exam Vital Signs Temp Pulse Resp BP Pulse Ox O2 Del Method 98.0 F 75 15 123/82 98 Room Air 04/26/25 03:48 04/26/25 03:48 04/26/25 03:48 04/26/25 03:48 04/26/25 03:48 04/26/25 03:48 Constitutional Constitutional: no acute distress Routine HEENT Exam Head: Present normocephalic and atraumatic Eye: Present EOMI and PERRL ENT: Present mucous membranes moist Routine Neck Exam Neck: Present supple and trachea midline Routine Respiratory Exam Respiratory: Present chest non-tender, lungs clear, normal breath sounds and no resp distress Routine Cardiovascular Exam Cardiovascular: Present RRR Routine Abdominal Exam Abdominal: Present soft and normoactive bowel sounds Routine Extremities Exam Extremities: Present full ROM Routine Skin Exam Skin: Present intact, dry and warm Routine Neurological Exam Neurological: Present alert, oriented X3 and CN II-XII intact Routine Psychiatric Exam Psychiatric: Present normal affect and normal thought process Objective Labs 04/26/25 06:50 Labs: Laboratory Results - last 24 hr 04/24/25 04/26/25 20:29 06:50 WBC 14.8 H RBC 4.02 Hgb 12.1 Hct 34.8 L MCV 87 MCH 30.1 MCHC 34.8 RDW Std Deviation 42.4 Plt Count 261 Neut % (Auto) 69 Lymph % (Auto) 23 [place] % (Auto) 6 Eos % (Auto) 1 Baso % (Auto) 1 Neut # (Auto) 10.2 H Lymph # (Auto) 3.4 [place] # (Auto) 0.9 H Eos # (Auto) 0.2 Baso # (Auto) 0.1 Immature Gran # (Auto) 0.18 H Absolute Nucleated RBC 0.00 Immature Gran % 1 H Nucleated RBC % 0 Blood Type A Negative Rho(D) IG Studies Ready Antibody Screen POSITIVE Antibody Identification Anti-D from [facility] Blood Bank Wristband ID Yes Assessment & Plan Problem List (1) care following vaginal delivery: Status: Acute Assessment and plan: PPD/POD#2 1. Continue routine care 2. Transition to PO meds. 3. Encourage to ambulate/ breast-feed 4. Anticipate discharge home today. Time Spent With Patient Time: Total time spent is greater than 50% in coordination of care (as documented) at patient's floor/unit and/or counseling patient:
--- NOTE | 2025-04-26 07:49 | OBDSUM_ITS ---
Data (Katz) Data Hx Section: No : 2 Term: 0 : 0 Livin Abortions: Spontaneous & Theraputic: 0 Delivery Data (Katz) Labor Data Initiation of labor: Spontaneous Induction/Augmentation Agent: None ROM date: 04/24/25 ROM time: 19:37 Amniotic membrane rupture type: Spontaneous Amniotic fluid description: Clear and Bloody Delivery Data Onset of labor date: 04/24/25 Onset of labor time: 15:00 Complete dilation date: 04/24/25 Complete dilation time: 19:38 delivery date: 04/24/25 [facility] delivery time: 19:48 Placenta delivery date: 04/24/25 Placenta delivery time: 19:48 Stage 1 total time: Labor - Stage 1 Duration 4 hours and 38 minutes Delivered by: Quique Reynoso Delivery nurse: naman Wilson nurse: lexa saba Manager Respiratory Care at delivery: No Support person(s) at delivery: father of baby Delivery Method Delivery method: Normal Vaginal Delivery Presentation: Vertex Anesthesia Type Anesthesia Type: Local Placenta Cord blood sent to lab: Yes cord blood collection: Cord Blood Type Episiotomy Episiotomy description: None Umbilical Cord cord description: 3 Vessels Data (Katz) Data order: 1 [facility] gender: Male weight (gms): 2550 g Weight (pounds): 5 lbs and 9.9 ozs 1 minute: 9 5 minutes: 9
--- NOTE | 2025-04-26 07:50 | ESDS_ITS ---
DS: Providers Provider Date of admission: 04/24/25 19:55 Primary care physician: Physician No Primary/Family Admitting Provider: Wili Harvey MD Attending Provider on Admission: Wili Harvey MD Consults: 04/24/25 23:07 Referral Routine Comment: Attending Provider on DC: Wili Harvey MD Discharging Provider: Wili Harvey MD DS: Diagnosis Discharge Diagnosis (1) care following vaginal delivery: Status: Acute (2) Precipitous delivery: Status: Acute (3) Placental abruption: Status: Acute Problem List Completed Was Problem List Reviewed/Reconciled?: Yes Summary/Hosp Course Brief History: 35-year-old 2 para 1 at 35 weeks and 0 days with estimated due date of 05/29/2025 presented to labor and delivery triage with contractions that started at 3 PM this afternoon. Shortly after patient had spontaneous rupture of membranes followed by precipitous delivery within 20 minutes. Patient does have a history of a prior 37-week delivery. She denies any other associated complaints. Patient was recently admitted to antepartum service because of pyelon ephritis/hemorrhagic cystitis She receives care with Dr Dial at [facility] Peripartum Data Delivery Method: Normal Vaginal Delivery Episiotomy Description: None Time Spent with Patient Time attestation: Total time spent providing and/or coordinating discharge services: Exam Vital Signs Temp Pulse Resp BP Pulse Ox O2 Del Method 98.0 F 75 15 123/82 98 Room Air 04/26/25 03:48 04/26/25 03:48 04/26/25 03:48 04/26/25 03:48 04/26/25 03:48 04/26/25 03:48 Discharge Plan Plan Patient Disposition: HOME (Self Care) Patient condition on transfer: Stable Prescriptions/Referrals Prescriptions/Med Rec: New docusate sodium 100 mg Capsule 100 mg PO QDAY 30 Days Qty: 30 0RF ibuprofen 400 mg Tablet 800 mg PO Q8HR PRN (Reason: Pain Scale 4-6 (Moderate) 10 Days Qty: 40 0RF Referrals: Bob Dial MD [Physician] - No Primary/Family,Physician [Primary Care Provider] - Patient/Caregiver Discharge Instructions Meds to Beds: Yes Education Materials: Expressing Your Milk, After Delivery [place] Concerns, Breast Care After , Nutrition While , Understanding Depression, : Caring for Yourself, Feel Healthy After, Delivery After Stay Fit Print Language: [place] Islander Stand Alone Forms: Tonya Award Info., Patient Portal Info Letter Vaccines Vaccines Given During Stay: Rhogam Discharge Order Discharge Orders: Discharge (Routine); Ordered 04/26/25 Ordered By: Wili Harvey Planned Discharge Date 04/26/25
[2025-04-26] MEDS: DOCUSATE SOD 100 MG CAPSULE PO (07:54)
[2025-04-26 07:55] VITALS: BP 128/84; PULSE 75; RESP 15; TEMP 36.8; O2SAT 98
== END 2025-04-26 11:40 | disposition home or self-care (01) | DRG 805 ==
LOC: S4SX 20:02 → S4NX 04-25 07:54 → S4SX 04-26 07:47
PROVIDERS: Obstetrics & Gynecology; Admitting Provider Obstetrics & Gynecology; Visit Provider Obstetrics & Gynecology
DX: O42.013 Preterm premature rupture of membranes, onset of labor within 24 hours of rupture, third trimester (principal); O45.93 Premature separation of placenta, unspecified, third trimester; Z37.0 Single live birth; O62.3 Precipitate labor; Z3A.35 35 weeks gestation of pregnancy
CPT/HCPCS: 36415; 59025; 80307; 85025; 85461; 86780; 86850; 86870; 86900; 86901; J2210; J2590; J2790; J3010; J3490; A9270